=== PATIENT | female | born 1980 ===

== ENCOUNTER 2021-07-08 06:26 | Day surgery (SDC) | payer OTHER | END 2021-07-08 14:35 | disposition home or self-care (01) | LOC: CIR.AMB 06:26 | PROVIDERS: ATTEND Orthopaedic Surgery | DX: M75.121 Complete rotator cuff tear or rupture of right shoulder, not specified as traumatic (principal); M75.21 Bicipital tendinitis, right shoulder; Z86.16 Personal history of COVID-19; K29.70 Gastritis, unspecified, without bleeding; E66.9 Obesity, unspecified ==